=== PATIENT | male | born 1975 | race Two or more races ===

== ENCOUNTER 2025-01-26 15:28 | Emergency (ER) | payer MEDICAID, SELFPAY ==
[2025-01-26 15:33] VITALS: BMI 24.4
[2025-01-26 15:35] VITALS: BP 174/107; BP 175/97; PULSE 83; RESP 18; TEMP 37.1; O2SAT 97
--- NOTE | 2025-01-26 15:43 | XR_ITS ---
Examination: CT brain head without contrast. 2-D sagittal coronal reconstructions Date and time of exam:January 26, 2025 1553 hrs. Indications: Generalized head pain and dizziness today Comparison: December 04, 2023 CTDI: vol (mGy):49.0 DLP: (mGycm):986 Technique: Multiple CT axial sections of the brain have been obtained, 5 mm slice thickness. Contrast has not been administered. 2-D sagittal, coronal reconstructions have been obtained Low dose protocols were performed. One or more of the following dose reduction techniques were used; automated exposure control, adjustment of the mA and/or KV according to patient size, use of iterative reconstruction technique. Findings: No significant ventricular enlargement. Intra-axial or extra-axial hemorrhage density is not seen. No mass effect or midline shift Basal cisterns are not remarkable. Fourth ventricle is midline. Cranial vault intact. Impression: Negative for acute hemorrhage, mass effect or midline shift Advise clinical correlation follow-up accordingly
[2025-01-26 15:53] VITALS: BP 175/97; PULSE 83
[2025-01-26] MEDS: cloNIDine HCL 0.1 MG TABLET PO (15:53)
[2025-01-26 16:28] LABS: Basophils # (Auto) 0.1 Thou/mm3 (0.0-0.2); Basophils % (Auto) 1 % (0-2.5); Eosinophils # (Auto) 0.1 Thou/mm3 (0.0-0.5); Eosinophils % (Auto) 1 % (0-10); Immature Granulocytes % (Auto) 0 % (0-0); Immature Granulocytes Auto 0.02 Thou/mm3 (0.00-0.00); Lymphocytes # (Auto) 2.8 Thou/mm3 (1.0-4.8); Lymphocytes % (Auto) 33 % (10-50); Mean Corpuscular HGB Conc 34.1 g/dl (31.0-37.0); Mean Corpuscular Hemoglobin 29.3 pg (25.0-35.0); Mean Corpuscular Volume 86 fL (80-100); Monocytes # (Auto) 0.7 Thou/mm3 (0.0-0.8); Monocytes % (Auto) 8 % (0-12); Neutrophils # (Auto) 4.9 Thou/mm3 (1.8-7.7); Neutrophils % (Auto) 57 % (37-80); Nucleated Red Blood Cell % 0 /100 WBC (0); Platelet Count 249 Thou/mm3 (140-440); RDW Standard Deviation 44.6 fL (35.1-43.9); Red Blood Count 5.12 Miln/mm3 (4.50-5.90); White Blood Count 8.6 Thou/mm3 (3.8-10.6)
[2025-01-26 16:46] LABS: Alanine Aminotransferase 29 U/L (10-49); Albumin, Serum 4.9 gm/dL (3.5-5.0); Albumin/Globulin Ratio 1.6 (1.2-2.2); Alkaline Phosphatase 97 U/L (46-116); Anion Gap 8 (7-16); Aspartate Amino Transferase 25 U/L (0-34); BUN/Creatinine Ratio 10 Ratio (12-20); Bilirubin,Total 0.6 mg/dL (0.3-1.2); Blood Urea Nitrogen 9 mg/dL (9-23); Calcium 9.8 mg/dL (8.3-10.6); Calcium (Corrected) 9.8 mg/dL (8.5-10.1); Chloride 104 mMol/L (98-107); Creatinine (Component) 0.9 mg/dL (0.6-1.3); Estimated Creatinine Clearance 112.2 mL/min (>60); Glucose 89 mg/dL (74-106); Osmolality,Calculated 278 (275-295); Potassium 3.3 mMol/L (3.4-5.1); Sodium 141 mMol/L (136-145); Total Protein 7.9 gm/dL (5.7-8.2); eGFR > 60 See Note
--- NOTE | 2025-01-26 17:00 | PD.EDADULT ---
ED General RME/HPI General Chief complaint: General Adult/Misc Complain Stated complaint: HIGH BLOOD PRESSURE 193/108, HEADACHE, DIZZINESS Time Seen by Provider: 01/26/25 15:43 Arrival date/time: 01/26/25 15:28 50-year-old male with history of hypertension to the emergency department today with concerns for headache and elevated blood pressure. Patient reports no chest pain no shortness of breath no dizziness or weakness Limitations: no limitations Related Data Allergies Allergy/AdvReac Type Severity Reaction Status Date / Time No Known Allergies Allergy Verified 01/26/25 15:33 Review of Systems Review of Systems Systems Reviewed: All systems reviewed, normal except as documented Constitutional Constitutional: Reports system reviewed and no additional complaints, except as documented, Denies fever(s) and Reports headache(s) Eyes Eyes: Reports system reviewed and no additional complaints, except as documented and Denies blurry vision ENT Ears, Nose, Mouth, and Throat: Reports system reviewed and no additional complaints, except as documented, Reports headache(s), Denies nasal congestion and Denies nasal discharge Cardiovascular Cardiovascular: Reports system reviewed and no additional complaints, except as documented, Denies chest pain and Denies dyspnea Respiratory Respiratory: Reports system reviewed and no additional complaints, except as documented, Denies chest congestion, Denies cough and Denies dyspnea Gastrointestinal Gastrointestinal: Reports system reviewed and no additional complaints, except as documented and Denies abdominal pain Integumentary/Breasts Skin/Breast: Reports system reviewed and no additional complaints, except as documented and Denies rash Neurologic Neurologic: Reports system reviewed and no additional complaints, except as documented, Reports as per HPI and Reports headache(s) Psychiatric Psychiatric: Reports system reviewed and no additional complaints, except as documented, Denies anxiety and Reports other (Undergoing stress) Past Medical History Past Medical History CARDIAC: Negative Congestive Heart Failure RESPIRATORY: Negative Chronic Obstructive Pulmonary Disease (COPD) GENITOURINARY: Negative Renal Disease ENDOCRINE: Negative Diabetes Mellitus Type 1 or Diabetes Mellitus Type 2 Social History SMOKING STATUS: Never smoker ED Exam General Limitations: Present no limitations General appearance: Present alert and in no apparent distress Head Head exam: Present atraumatic, normocephalic and normal inspection Eye Eye exam: Present normal appearance, PERRL and EOMI; Absent conjunctival injection ENT ENT exam: Present normal exam, normal oropharynx and mucous membranes moist Neck Neck exam: Present normal inspection, full ROM and trachea midline Chest Chest inspection: Present normal inspection and symmetric chest wall rise Respiratory Respiratory exam: Present normal lung sounds bilaterally; Absent respiratory distress Cardiovascular Cardiovascular exam: Present regular rate, normal rhythm and normal heart sounds Abdominal Exam Abdominal exam: Present soft and normal bowel sounds; Absent distention, tenderness, guarding, rebound or rigidity Extremities Exam Extremities exam: Present normal inspection and full ROM Back Exam Back exam: Present normal inspection and full ROM Neurological Exam Neurological exam: Present alert, oriented X3, CN II-XII intact, normal gait and reflexes normal; Absent motor sensory deficit Psychiatric Psychiatric exam: Present normal affect and normal mood Skin Skin exam: Present warm, dry, intact and normal color Course Quality Measures none Orders Category Date Time Status Consult to Neurology / Tele-Neurology Stat Cons 01/26/25 17:[address] head/brain wo con Stat Exams 01/26/25 15:43 Completed CBC Stat Lab 01/26/25 16:12 Completed CMP [Comprehensive Metabolic Panel] Stat Lab 01/26/25 16:12 Completed cloNIDine HCL [Catapres] Med 01/26/25 15:43 Discontinued 0.1 mg PO X1 ONE Vital Signs Vital signs: Vital Signs Temperature 98.7 F 01/26/25 15:35 Pulse Rate 83 01/26/25 15:35 Respiratory Rate 18 01/26/25 15:35 Blood Pressure 175/97 H 01/26/25 15:35 Pulse Oximetry (%) 97 01/26/25 15:35 O2 saturation 97% room air with normal Discharge Plan Plan Patient Disposition: HOME (Self Care) Disposition Comment: Stable Prescriptions/Referrals Referrals: No Primary/Family,Physician [Primary Care Provider] - In 1 week Problem List Clinical Impression: Headache, Hypertension Patient/Caregiver Discharge Instructions Education Materials: Blood Pressure Check Steps Additional Instructions: Please follow up with your primary care doctor in the next 24-48hrs for any worsening symptoms return here immediately Print Language: [place] Island[place] Stand Alone Forms: [employer] Info., Patient Portal Info Letter PA/FISH ROE TECHNICIAN Supervising Physician DEANNA/RONAK Supervising Physician: Dr Leda LÓPEZ Patient Acuity High Acuity (complete MDM) Narrative: 50-year-old male with history of hypertension to the emergency department today with concerns for headache and elevated blood pressure. Patient reports no chest pain no shortness of breath no dizziness or weakness On exam patient well-appearing patient does not appear ill or toxic patient walks with steady gait and answers all questions appropriately patient has no abnormal neurological findings Per patient's coworkers he has been more forgetful over the last couple of weeks. Consultation: Spoke with Dr Meyers she spoke with the patient felt the patient may follow-up on an outpatient basis As patient has no abnormal logical findings CT scan is negative and lab work is normal patient be discharged home Patient discharged home in no distress to follow-up with primary care doctor in the next 24 to 48 hours and for any worsening symptoms to return to the ER immediately Clinical Information Provided by: patient Medical Records reviewed [facility] Meds/Rx considered, not ordered describe: Given Labs/Rad/Tests considered, not ordered Describe: Obtained Chronic Illness/Social Conditions which may negatively complicate care or outcome(s)-explain: None or not applicable EKG EKG not done Labs Labs: Interpreted by me Imaging Imaging interpretation: other (Reviewed by me) Medication Administration(s) Medication Administration History Discontinued Medications Clonidine (Clonidine Hcl 0.1 Mg Tablet) 0.1 mg PO X1 ONE Stop: 01/26/25 15:44 Last Admin: 01/26/25 15:53 Dose: 0.1 mg Documented By: JAVID Given Consultations/Discussions re: Management Consult #1: Date/time: Dr Meyers Diagnosis Differential Diagnosis ED Complaint MDM: Headache, anxiety, stress reaction, migraine headache
--- NOTE | 2025-01-26 22:48 | PD.VCONSULT1 ---
Telemedicine visit statement This visit was conducted with the use of interactive audio and video telecommunications system that permits real time communication between the patient and the provider. Patient's verbal consent for virtual visit was obtained on 01/26/25 at 2248. History of Present Illness History of Present Illness History of present illness: 50-year-old male with history of hypertension presents to the ER today with concerns for headache and elevated blood pressure. Patient reports no chest pain, no shortness of breath, no dizziness or weakness, nauea or vomiting or paresthesias. Denies any similar symptoms in the past. Past Medical History Past Medical History CARDIAC: Negative Congestive Heart Failure RESPIRATORY: Negative Chronic Obstructive Pulmonary Disease (COPD) GENITOURINARY: Negative Renal Disease ENDOCRINE: Negative Diabetes Mellitus Type 1 or Diabetes Mellitus Type 2 Social History SMOKING STATUS: Never smoker TeleMedicine ROS Pertinent Review of Systems Systems Reviewed: All systems reviewed, normal except as documented Meds Home Medications and Allergies Allergies Allergy/AdvReac Type Severity Reaction Status Date / Time No Known Allergies Allergy Verified 01/26/25 15:33 Virtual exam Vital Signs Temp Pulse Resp BP Pulse Ox 98.7 F 83 18 175/97 H 97 01/26/25 15:35 01/26/25 15:53 01/26/25 15:35 01/26/25 15:53 01/26/25 15:35 Results Labs 01/26/25 16:12 01/26/25 16:12 Labs: Short CBC 01/26/25 Range/Units 16:12 WBC 8.6 (3.8-10.6) Thou/mm3 Hgb 15.0 (13.5-16.0) g/dL Hct 44.0 (41.0-53.0) % Plt Count 249 (140-440) Thou/mm3 BMP 01/26/25 16:12 Sodium 141 Potassium 3.3 L Chloride 104 Carbon Dioxide 29.0 BUN 9 Creatinine 0.9 Glucose 89 Calcium 9.8 Liver Function 01/26/25 Range/Units 16:12 Total Bilirubin 0.6 (0.3-1.2) mg/dL AST 25 (0-34) U/L ALT 29 (10-49) U/L Alkaline Phosphatase 97 (46-116) U/L Albumin 4.9 (3.5-5.0) gm/dL Assessment & Plan Problem List (1) Headache: Status: Acute Assessment and plan: Could have been related to high blood pressure needs aggressive medical management with the diet and exercise.. (2) Hypertension: Status: Acute Assessment and plan: Needs better sleep, sleep hygiene measures, medication compliance diet controlled with low-salt and regular exercise.
== END 2025-01-26 17:19 | disposition home or self-care (01) ==
PROVIDERS: Nurse Practitioner Primary Care; Emergency Provider Emergency Medicine
DX: R51.9 Headache, unspecified (principal); I10 Essential (primary) hypertension
CPT/HCPCS: 36415; 70450; 80053; 85025; 99284; A9270